=== PATIENT | female | born 1950 | race Caucasian/White ===

== ENCOUNTER 2022-12-11 10:30 | Day surgery (SDC) | payer MEDICARE, BC ==
[~2022-12-11] VITALS: Ht 157.5 cm; Wt 65.9 kg
[~2022-12-11 10:30] MED LIST: ACYCLOVIR400 MG PO; FLONASE ALLERG9.9 ML NAS; LEVOFLOXACIN500 MG PO; POSACONAZOLE100 MG PO; PROCHLORPERAZIN10 MG PO; ZYRTEC10 M3 PO
--- NOTE | 2022-12-11 12:25 | NUR ---
12/11/22 1225 Livier Hendrix 1218-PATIENT ARRIVED TO PACU ON 4L NC PLACED ON 3L RR EVEN. PATIENT REACTIVE TO VERBAL STIMULI DENIES PAIN OR NAUSEA. DRESSING TO LEFT BACK CDI. IVFI NFUSING. SR.
--- NOTE | 2022-12-22 13:53 | PATH ---
[facility] [address] [place], [place] [address] Signed THIS IS AN ADDENDUM REPORT SPECIMEN(S): A BONE MARROW - CORE SPECIMEN(S): B BONE MARROW - ASPIRATION SPECIMEN(S): C FLOW CYTOMETRY, BM EDTA ASP CLINICAL HISTORY: Bone marrow biopsy. 72-year-old female. 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 Eval. remission/relapse. See attached. C92.00 (acute myeloblastic leukemia, not having achieved remission) DIAGNOSIS SUMMARY: Peripheral blood - Pancytopenia, status post chemotherapy for AML. - Macrocytic anemia. - No circulating blasts are identified. Bone marrow biopsy and aspiration: - Normocellular marrow, 25%, with less than 1% blasts. - No residual AML is identified by morphology, immunohistochemistry staining, or flow cytometry. - MRD testing for IDH2 mutation is negative. - Normal to mildly increased marrow iron stores by Prussian Blue staining. - See Diagnostic Comment. DIAGNOSTIC COMMENT: No residual AML is identified by morphology, immunohistochemistry staining, or flow cytometry. A MRD test for IDH1/IDH2 mutation is negative. Chromosome analysis is pending. The result will be reported in an addendum. JLP:C2NR HISTORICAL SUMMARY: 72-year-old female with a history of acute myelogenous leukemia (see case [id number]; 02/21/2022). That bone marrow reported a normal FISH panel for AML and normal chromosome analysis. 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 This bone marrow is for re-staging. PERIPHERAL BLOOD: PATIENT NAME: GAGAN JAMA PATHOLOGY DATE OF : 52 REPORT #: [id number] PHYSICIAN: ANT PATHOLOGY PCP: SHAE SCHROEDER MD REPORT IS CONFIDENTIAL AND NOT TO BE RELEASED WITHOUT AUTHORIZATION [facility] [address] [place], [place] [address] Signed HEMOGRAM (12/11/2022): WBC 3.2 K/ul, RBC 2.31 M/ul, HGB 8.2 g/dl, HCT 24.2%, MCV 105.0 fl, MCH 35.5 pg, MCHC 33.8 g/dl, RDW 20.5%%, PLT 43 K/ul. AUTOMATED DIFFERENTIAL COUNT: Neutrophils 52.0%, lymphocytes 37.0%, monocytes 10.0%, eosinophils 0.7%, basophils 0.3%. The red blood cells are macrocytic and normochromic with moderate anisopoikilocytosis. The neutrophils are unremarkable. Lymphocytes are composed of small mature appearing forms. Platelets are decreased in number with no platelet clumping or RBC microangiopathic effect identified. No blasts are identified. BONE MARROW: ASPIRATE SMEARS/TOUCH IMPRINT: The aspirate smears are adequate for evaluation. Erythroid precursors are increased in number but show adequate maturation with focal mild dyspoiesis. The myeloid precursors show full maturation with unremarkable morphology. There is no increase in blasts. Megakaryocytes are identified with a normal morphology. BONE MARROW DIFFERENTIAL COUNT (300 cells): Blasts less than 1%, promyelocytes 2%, myelocytes 5%, metamyelocytes/bands/segs 27%, erythroid precursors 49%, lymphocytes 11%, monocytes 4%, eosinophils 1%, plasma cells 1%. M:E ratio: Inverted at 0.7:1 BONE MARROW CORE BIOPSY/ASPIRATE CLOT/CELL BLOCK: The aspirate clot section and the core biopsy are adequate for evaluation. The core biopsy demonstrates unremarkable trabecular bone. The cellularity is normal for age, estimated at 25%. The erythroid precursors are increased in number. The myeloid precursors are unremarkable with no significant dyspoiesis. Blasts are not increased. Megakaryocytes appear decreased in number but with a normal morphology. No granulomas, atypical lymphoid aggregates or foreign malignant cells are detected. SPECIAL STAINS (with adequate controls): - iron (aspirate smear): No marrow spicules are present for evaluation of marrow iron stores. - iron (cell block): Normal to mildly increased marrow iron stores by Prussian Blue stain. No ring sideroblasts are identified. IMMUNOHISTOCHEMISTRY STAINS (performed on block A1 with adequate controls). - CD34: 1% - CD117: 1% FLOW CYTOMETRY: Bone marrow, flow cytometry: - No residual AML identified by flow cytometry analysis. PATIENT NAME: GAGAN JAMA PATHOLOGY DATE OF : 52 REPORT #: [id number] PHYSICIAN: ANT PATHOLOGY PCP: SHAE SCHROEDER MD REPORT IS CONFIDENTIAL AND NOT TO BE RELEASED WITHOUT AUTHORIZATION [facility] [address] [place] [address] Signed - See Comment. COMMENT: The prior flow cytometry is reviewed (see case [id number]; 02/21/2022). No residual AML is identified in this current bone marrow specimen. 0.3% myeloblasts are detected with no aberrant marking. No lymphoid clonality is detected. Correlation with bone marrow findings is recommended. FLOW CYTOMETRY ANALYSIS: FLOW DIFFERENTIAL (% Total CD45 vs. SSC gating): Myeloid 84%; Lymphoid 6%; Monocyte 5%; Dim CD45/Blast: 0.3%. Cell Count: 6.2 x 10*3/uL. POPULATION ANALYSIS: BLASTS: Analysis of the dim CD45 gate demonstrates 0.3% myeloblasts by CD34/CD117 and 0.1% hematogones. LYMPHOID CELLS: The lymphocyte gate comprises 6% of total events and includes 95% T-cells with a CD4:CD8 ratio of 1.6:1 and normal dumont T-cell antigen expression. B-cells are essentially absent. The remainders are NK-cells. MYELOID CELLS: The myeloid population comprises 84% of the total events. Decreased CD10 expression is observed. MONOCYTES: The monocyte population comprises 5% of the total events. Some increased CD15 expression is observed. A monocytic subset is detected (24% of monocytes, 1% of total events) with loss of CD14. PLASMA CELLS: 0.2% plasma cells are detected in the screening gate neg-dimCD45/CD38. Plasma cells are CD45 dim and positive for CD19. ANTIBODIES USED: KAPPA, LAMBDA, CD20, CD10, CD19, CD23, CD38, CD16, CD56, CD8, CD5, CD2, CD4, CD7, CD3, CD14, CD33, CD13, HLADR, CD34, CD117, CD15, CD45: TOTAL ANTIBODIES USED: 23. JNB FINAL DIAGNOSIS PERFORMED BY: Marc Griffiths MD, Dec 12 2022 12:47PM CYTOGENETICS: Chromosome analysis is pending, and the result will be reported in an addendum. MOLECULAR / PCR: Bone marrow, IDH1/IDH2 mutation analysis by PCR: NOT DETECTED (IDH1 and IDH2 mutations) Clinical Significance: PATIENT NAME: GAGAN JAMA PATHOLOGY DATE OF : 52 REPORT #: [id number] PHYSICIAN: ANT PATHOLOGY PCP: SHAE SCHROEDER MD REPORT IS CONFIDENTIAL AND NOT TO BE RELEASED WITHOUT AUTHORIZATION [facility] [address] [place] [place] [address] Signed Mutations in the enzyme isocitrate dehydrogenase 1 (IDH1) and IDH2 genes have been identified in a variety of tumors including central nervous system gliomas, cholangiocarcinoma, acute myeloid leukemia, blast-phase myeloproliferative neoplasms (MPNs) and chronic-phase primary myelofibrosis (PMF). Per professional practice guidelines, testing for IDH mutations has diagnostic and prognostic implications in the workup of gliomas and guides therapy selection in AML. AML patients with IDH mutations may respond to venetoclax-based therapy or IDH inhibitors. Methodology: DNA is extracted from peripheral blood, bone marrow, or formalin-fixed paraffin embedded (FFPE) tissue. For solid tumors, tumor enrichment may be performed before DNA extraction. Mutations at IDH1 codons R132X and R100Q and at IDH2 codons R140X and R172X are detected using real-time PCR. IDH1 and IDH2 are analyzed concurrently. This assay is designed to detect variants at the codon level, but not the specific amino acid change (except for R100Q). The sensitivity for variant detection at each codon position is as follows: IDH1 R132X (5-15%), IDH1 R100Q (5%), IDH2 R172X (2-15%, with one rare R172G variant at 20%), IDH2 R140X (5-15%). Various factors including quantity or quality of nucleic acid, sample preparation, and sample age can affect assay performance. References: 1. Barth S, Ely Y, Tl SJ, et al. IDH mutation in glioma: molecular mechanisms and potential therapeutic targets. Br J Cancer. 2020;122(11):8082-5254. PMID: 42130393. 2. Connie LONDONO, Po , Po RYAN, et al. Mutant isocitrate dehydrogenase 1 inhibitor ivosidenib in combination with azacitidine for newly diagnosed acute myeloid leukemia. J Clin Oncol. 2020;39(1):57-65. PMID: 86053182. 3. Po RYAN, Connie LONDONO, Samuel AT, et al. Molecular remission and response patterns in patients with mutant-IDH2 acute myeloid leukemia treated with enasidenib. Blood. 2018 14;133(7):676-687. PMID: 02163901. Test/Panel MolDX CPT AMA CPT IDH1/IDH2 Mutation Analysis by PCR [id number], [address] The Accessioning Component, Technical Component Processing, Analysis and Professional Component of this test was completed at [facility] [place], [address] [place] [address] / [id number] / PATIENT NAME: GAGAN JAMA PATHOLOGY DATE OF : 52 REPORT #: [id number] PHYSICIAN: ANT PAGE PCP: SHAE SCHROEDER MD REPORT IS CONFIDENTIAL AND NOT TO BE RELEASED WITHOUT AUTHORIZATION [address] [address] Signed [phone] / CLIA #[id number] / Lead Auditor(s): Marvin Quinn M.D. (Accession/CaseNo: [id number]) The performance characteristics of this test have been determined by [facility]. This test has not been approved by the FDA. The FDA has determined such clearance or approval is not necessary. This laboratory is CLIA certified to perform high complexity clinical testing. Images that may be included within this report are merchandiser retail representative of the patient but not all testing in its entirety and should not be used to render a result. The CPT codes provided with our test descriptions are based on MolDX and AMA guidelines and are for informational purposes only. Correct CPT coding is the sole responsibility of the billing constitution party. Please direct any questions regarding coding to the payer being billed. GROSS DESCRIPTION: Two specimens are received in two containers. A. The specimen, labeled and designated "Jama, bone marrow core," is received in formalin and consists of one core of red-de la cruz bone (2.0 cm in length x 0.2 cm in diameter). The specimen is submitted entirely in cassette (A1) following decalcification in Immunocal. B. The specimen, labeled and designated "Jama, bone marrow clot," is received in formalin and consists of a portion of red-brown clot-like material (1.6 x 1.2 x 0.3 cm in aggregate). The specimen is submitted entirely in cassette (B1). VB (under the direct supervision of a pathologist) The Gross Description was prepared using a voice recognition system. The report was reviewed for accuracy; however, sound-alike word errors, addition and/or deletions may occur. If there is any question about this report, please contact Client Services. ADDITIONAL NOTES: Immunohistochemical and/or in situ hybridization studies were performed on this case with the appropriate positive controls that react as expected. This test was developed and its performance characteristics determined by [employer]. It has not been cleared or approved by the U.S. Food and Drug Administration. The FDA has determined that such clearance or approval is not necessary. This test is used for clinical purposes. It should not be regarded as investigational or for research. [employer] is certified under the PATIENT NAME: GAGAN JAMA PATHOLOGY DATE OF : 52 REPORT #: [id number] PHYSICIAN: ANT PAGE PCP: SHAE SCHROEDER MD REPORT IS CONFIDENTIAL AND NOT TO BE RELEASED WITHOUT AUTHORIZATION [facility] [address] [place] [address] Signed Clinical Laboratory Improvement Amendments of 1988 (CLIA) as qualified to perform high complexity clinical laboratory testing. This assay has not been validated for specimens that have been decalcified. In this case, certain antibodies were performed by both immunohistochemistry and flow cytometry analysis because flow cytometry analysis did not fully explain all the light microscopic findings. Immunohistochemistry aided in the analysis. Both methods are deemed medically necessary in this case. This test was developed and its performance characteristics determined by [employer]. It has not been cleared or approved by the US Food and Drug Administration. The FDA does not require this test to go through premarket FDA review. This test is used for clinical purposes. It should not be regarded as investigational or for research. This laboratory is certified under the Clinical Laboratory Improvement Amendments (CLIA) as qualified to perform high complexity clinical laboratory testing. PERFORMING LABORATORY: The technical preparation was performed by [facility], [address] [place] [address] (CLIA#: [id number]). Professional interpretation was performed by [facility] - [facility], [address] [place] [id number] (CLIA#: [id number]). A portion of the technical component was performed by [facility], [address] [place] [id number] (CLIA# [id number]). A portion of the technical component was performed by [facility], [facility] [place] [address] (CLIA#: [id number]). Professional interpretation was performed by [facility] - [facility], [address] [place] [phone] (CLIA#: [id number]). IMAGES: A: [id number] A: [id number] REASON FOR ADDENDUM: To report results of additional testing. Bone marrow, chromosome analysis: Karyotype: 46,XX[20] Interpretation: PATIENT NAME: GAGAN JAMA PATHOLOGY DATE OF : 52 REPORT #: [id number] PHYSICIAN: ANT PATHOLOGY PCP: SHAE SCHROEDER MD REPORT IS CONFIDENTIAL AND NOT TO BE RELEASED WITHOUT AUTHORIZATION [address] [place], [place] [address] Signed NORMAL FEMALE KARYOTYPE Cytogenetic analysis shows a normal female karyotype in all cells analyzed. Comments: A normal karyotype was observed in a previous specimen. Please refer to [facility] Results (below). Standard cytogenetic analysis may not detect subtle submicroscopic rearrangements and may not include metaphases from abnormal cell populations with low mitotic rates or present in low levels. Test Detail: Metaphases Counted: 20 Metaphases Analyzed: 20 Metaphases Karyotyped: 2 Culture Type: 48EB, 24EB Banding Technique: GTG Banding Resolution: 400 CPT Codes: 28949, 48266*, 57356 PWATRACK Results Accession / CaseNo Report Date Specimen Type Karyotype [id number] / [id number] 03/01/2022 Bone Marrow 46,XX[20] *Professional interpretation service generally billed directly to carriers by [facility]. The Accessioning Component, Technical Component Processing and Analysis of this test was completed at [facility] [address] / [id number] / [phone] / CLIA #[id number] / Lead Auditor(s): Marvin Quinn M.D. The Professional Component of this test was completed at [facility] [place], [address] [place] [address] / [address] / [phone] / CLIA# [id number] / Lead Auditor(s): Bennett Child, Ph.D. (Accession/CaseNo: [id number]) The performance characteristics of this test have been determined by the performing laboratory. This test has not been approved by the FDA. The FDA has determined such clearance or approval is not necessary. This laboratory is CLIA certified to perform high complexity clinical testing. [facility] Results captures historical data from previous patient reports. These results may not have been reviewed by the doctor performing the professional interpretation for this report. Images that may be included within this report are merchandiser retail representative of the patient but not all testing in its entirety and should not be used to render a result. PATIENT NAME: GAGAN JAMA PATHOLOGY DATE OF : 52 REPORT #: [id number] PHYSICIAN: ANT PATHOLOGY PCP: SHAE SCHROEDER MD REPORT IS CONFIDENTIAL AND NOT TO BE RELEASED WITHOUT AUTHORIZATION [address] [place], [place] [address] Signed The CPT codes provided with our test descriptions are based on AMA guidelines and are for informational purposes only. Correct CPT coding is the sole responsibility of the billing constitution party. Please direct any questions regarding coding to the payer being billed. Diagnostician: Marc Griffiths MD Pathologist Electronically Signed 12/22/2022 Copies: ~ PATIENT NAME: GAGAN JAMA PATHOLOGY DATE OF : 52 REPORT #: [id number] PHYSICIAN: ANT PATHOLOGY PCP: SHAE SCHROEDER MD REPORT IS CONFIDENTIAL AND NOT TO BE RELEASED WITHOUT AUTHORIZATION
== END 2022-12-11 12:55 | disposition home or self-care (01) ==
LOC: DS 10:30 → OPS 10:30 → DS 12:00 → OPS 12:55
PROVIDERS: ATTEND Specialist
PROC: 079T3ZX Drainage of Bone Marrow, Percutaneous Approach, Diagnostic (ICD-10-PCS; principal; 2022-12-11 12:00)
DX: C92.00 Acute myeloblastic leukemia, not having achieved remission (principal); M19.90 Unspecified osteoarthritis, unspecified site; J45.909 Unspecified asthma, uncomplicated; Z79.899 Other long term (current) drug therapy
CPT/HCPCS: 01112; 36415; 85025; 85060; 88184; 88185; 88305; 88311; 88313; 88341; 88342; J1200; J2704; J7121